=== PATIENT | female | born 1995 | race Caucasian/White ===

== ENCOUNTER 2018-07-07 16:34 | Inpatient (IN) | payer MEDICAID ==
[~2018-07-07] VITALS: Ht 157.5 cm; Wt 70.5 kg
[~2018-07-07 16:34] MED LIST: DOCU-131 PO; FERR324T8 PO; IBUP-1222 PO; prenatal vitamin PO
[2018-07-10] MEDS ORDERED: LIDOCAINE/PF 1.5%-EPI 1:200K, 30ML ONE (11:40)
[2018-07-11] MEDS ORDERED: OXYTOCIN 30U/ 0.9% NaCL 500ML 500 ML IV ONE (06:53)
[2018-07-11] MEDS ORDERED: OXYTOCIN 30U/ 0.9% NaCL 500ML 500 ML IV PRN ×2 (06:53→09:00)
[2018-07-11 06:56] VITALS: BP 101/60
[2018-07-11] MEDS ORDERED: ONDANSETRON 2MG/ML, 2ML IVPush PRN ×2 (07:00→11:30)
[2018-07-11] MEDS ORDERED: FENTANYL PF 100 MCG/2ML IV PRN (07:00)
[2018-07-11] MEDS ORDERED: FENTANYL PF 100 MCG/2ML IVPush PRN (07:00)
[2018-07-11] MEDS ORDERED: CALCIUM CARBONATE 500 MG TAB.CHEW PO PRN (07:00)
[2018-07-11] MEDS: LACTATED RINGERS 1,000 ML IV SCH ×5 (07:10→19:24)
[2018-07-11 07:30] LABS: BASOPHILS # (AUTO) 0.03 x10^3/uL (0-0.1); BASOPHILS % (AUTO) 1 % (0-1); EOSINOPHILS # (AUTO) 0.05 x10^3/uL (0-0.4); EOSINOPHILS % (AUTO) 1 % (1-7); LYMPHOCYTES # (AUTO) 2.04 x10^3/uL (1-3.4); LYMPHOCYTES % (AUTO) 31 % (22-44); MD NO; MEAN CORPUSCULAR HEMOGLOBIN 28.3 pg (27.0-34.8); MEAN CORPUSCULAR HGB CONC 33.3 g/dL (32.4-35.8); MEAN CORPUSCULAR VOLUME 85.2 fL (80-100); MEAN PLATELET VOLUME 6.1 fL (7.4-10.4); MONOCYTES # (AUTO) 0.43 x10^3/uL (0.2-0.8); MONOCYTES % (AUTO) 7 % (2-9); NEUTROPHILS # (AUTO) 4.02 x10^3/uL (1.8-6.8); NEUTROPHILS % (AUTO) 61 % (42-75); PLATELET COUNT 254 x10^3/uL (130-400); RED BLOOD COUNT 3.94 x10^6/uL (3.82-5.3); RED CELL DISTRIBUTION WIDTH 13.8 % (9.6-15.2)
[2018-07-11] MEDS ORDERED: OXYTOCIN 30U/ 0.9% NaCL 500ML 500 ML ONE ×2 (07:31→12:22)
[2018-07-11] MEDS ORDERED: NEWBORN KIT ONE (07:31)
[2018-07-11] MEDS: D5%-LACTATED RINGERS 1,000 ML IV SCH ×2 (09:00→17:00)
[2018-07-11] MEDS ORDERED: FENTANYL/BUPIV./NS/PF 250 ML EPIDCONT SCH (10:35)
[2018-07-11] MEDS ORDERED: FENTANYL PF 100 MCG/2ML ONE (11:24)
[2018-07-11] MEDS: FENTANYL/BUPIV./NS/PF 250 ML EPIDCONT SCH (11:24)
[2018-07-11] MEDS ORDERED: BUPIVACAINE 0.25% ONE (11:29)
[2018-07-11] MEDS ORDERED: LACTATED RINGERS 1,000 ML IVBOLUS PRN (11:30)
[2018-07-11] MEDS ORDERED: DIPHENHYDRAMINE 50 MG/ML, 1ML IVPush PRN (11:30)
[2018-07-11] MEDS ORDERED: NALOXONE 0.4 MG/ML, 1ML IVPush PRN (11:30)
[2018-07-11] MEDS ORDERED: EPHEDRINE 50 MG/ML, 1ML IVPush PRN (11:30)
[2018-07-11] MEDS ORDERED: IBUPROFEN 600 MG TABLET ONE (12:22)
[2018-07-11] MEDS: IBUPROFEN 600 MG TABLET PO PRN ×2 (12:24→21:10)
[2018-07-11] MEDS ORDERED: BISACODYL 10 MG SUPP PR ONE (12:30)
[2018-07-11] MEDS ORDERED: CARBOPROST TROMETHAMINE 250 MCG/ML, 1ML IM PRN (12:30)
[2018-07-11] MEDS ORDERED: ACETAMINOPHEN 325 MG TABLET PO PRN (12:30)
[2018-07-11] MEDS ORDERED: METOCLOPRAMIDE 5 MG/ML, 2ML IV PRN (12:30)
[2018-07-11] MEDS ORDERED: DOCUSATE 100 MG CAPSULE PO PRN (12:30)
[2018-07-11] MEDS ORDERED: ONDANSETRON 2MG/ML, 2ML IV PRN (12:30)
[2018-07-11] MEDS ORDERED: METHYLERGONOVINE 0.2 MG/ML IM PRN (12:30)
[2018-07-11] MEDS ORDERED: MISOPROSTOL 200 MCG TABLET PR PRN (12:30)
[2018-07-11] MEDS: OXYTOCIN 30U/ 0.9% NaCL 500ML 500 ML IV SCH ×2 (13:01→22:21)
[2018-07-11] MEDS ORDERED: HYDROcodone/APAP 5/325 TABLET ONE (14:43)
[2018-07-11] MEDS: OXYcodone/APAP 5/325MG TABLET PO PRN ×2 (14:47→21:06)
[2018-07-11 15:10] VITALS: BP 97/61
[2018-07-11 20:01] VITALS: BP 98/64
[2018-07-11 23:25] VITALS: BP 99/57
[2018-07-12 00:55] LABS: BASOPHILS # (AUTO) 0.02 x10^3/uL (0-0.1); BASOPHILS % (AUTO) 0 % (0-1); EOSINOPHILS # (AUTO) 0.03 x10^3/uL (0-0.4); EOSINOPHILS % (AUTO) 0 % (1-7); LYMPHOCYTES # (AUTO) 2.33 x10^3/uL (1-3.4); LYMPHOCYTES % (AUTO) 27 % (22-44); MD NO; MEAN CORPUSCULAR HEMOGLOBIN 28.9 pg (27.0-34.8); MEAN CORPUSCULAR HGB CONC 33.3 g/dL (32.4-35.8); MEAN CORPUSCULAR VOLUME 86.8 fL (80-100); MEAN PLATELET VOLUME 6.4 fL (7.4-10.4); MONOCYTES # (AUTO) 0.65 x10^3/uL (0.2-0.8); MONOCYTES % (AUTO) 7 % (2-9); NEUTROPHILS # (AUTO) 5.75 x10^3/uL (1.8-6.8); NEUTROPHILS % (AUTO) 66 % (42-75); PLATELET COUNT 215 x10^3/uL (130-400); RED BLOOD COUNT 2.86 x10^6/uL (3.82-5.3); RED CELL DISTRIBUTION WIDTH 13.6 % (9.6-15.2)
[2018-07-12] MEDS: D5%-LACTATED RINGERS 1,000 ML IV SCH ×2 (01:00→09:00)
[2018-07-12] MEDS: LACTATED RINGERS 1,000 ML IV SCH ×3 (03:24→11:24)
[2018-07-12 04:00] VITALS: BP 94/58
[2018-07-12] MEDS: IBUPROFEN 600 MG TABLET PO PRN ×2 (04:16→10:39)
[2018-07-12] MEDS: OXYcodone/APAP 5/325MG TABLET PO PRN ×2 (04:17→10:39)
[2018-07-12 07:15] VITALS: BP 93/56
[2018-07-12] MEDS: OXYTOCIN 30U/ 0.9% NaCL 500ML 500 ML IV SCH (08:21)
[2018-07-12] MEDS ORDERED: PRENATAL VIT/IRON/FA 1 EACH TABLET PO SCH (09:00)
[2018-07-12] MEDS: FENTANYL/BUPIV./NS/PF 250 ML EPIDCONT SCH (11:24)
[2018-07-12 11:50] VITALS: BP 97/58
== END 2018-07-12 14:46 | disposition home or self-care (01) | DRG 775 ==
LOC: LDIP 07-11 06:43 → 2NW 07-11 15:16
PROVIDERS: ADMIT Student in an Organized Health Care Education/Training Program; ATTEND Student in an Organized Health Care Education/Training Program
PROC: 10E0XZZ Delivery of Products of Conception, External Approach (ICD-10-PCS; principal; 2018-07-11)
PROC: 10907ZC Drainage of Amniotic Fluid, Therapeutic from Products of Conception, Via Natural or Artificial Opening (ICD-10-PCS; 2018-07-11)
PROC: 3E033VJ Introduction of Other Hormone into Peripheral Vein, Percutaneous Approach (ICD-10-PCS; 2018-07-11)
PROC: 0HQ9XZZ Repair Perineum Skin, External Approach (ICD-10-PCS; 2018-07-11)
PROC: 3E0R3BZ Introduction of Anesthetic Agent into Spinal Canal, Percutaneous Approach (ICD-10-PCS; 2018-07-11)
PROC: 00HU33Z Insertion of Infusion Device into Spinal Canal, Percutaneous Approach (ICD-10-PCS; 2018-07-11)
DX: O70.0 First degree perineal laceration during delivery (principal); Z37.0 Single live birth; Z3A.40 40 weeks gestation of pregnancy
CPT/HCPCS: 36415; 85025; 86850; 86900; J3010; J3490; C1765; J2590; J7120

== ENCOUNTER 2019-06-12 11:15 | Emergency (ER) | payer MEDICAID ==
[~2019-06-12] VITALS: Ht 157.5 cm; Wt 65.0 kg
[2019-06-12 11:20] VITALS: BP 124/80
--- NOTE | 2019-06-12 11:52 | NUR ---
Pt ambulatory to room. States that she has a small "ball or bump" on her vagina that hurts when she walks. Denies any sexual activity for the past month. Pt placed on pelvic bed. Denies any further needs or concerns at this time.
--- NOTE | 2019-06-12 12:02 | NUR ---
Pelvic cart at bedside.
[2019-06-12 12:46] LABS: CLUE CELLS PRESENT (NONE SEEN); WET PREP WBCS MODERATE (FEW)
== END 2019-06-12 14:01 | disposition home or self-care (01) ==
LOC: ED 13:16
DX: N76.4 Abscess of vulva (principal); N76.0 Acute vaginitis
CPT/HCPCS: 87210; 87491; 87591; 87808; 99283

== ENCOUNTER 2020-11-14 11:56 | Emergency (ER) | payer MEDICAID ==
[~2020-11-14] VITALS: Ht 157.5 cm; Wt 67.0 kg
[2020-11-14] MEDS ORDERED: METHOCARBAMOL 750 MG TABLET ONE (12:29)
[2020-11-14] MEDS ORDERED: METHOCARBAMOL 750 MG TABLET PO ONE (12:30)
[2020-11-14] MEDS ORDERED: NAPROXEN 500 MG TABLET PO ONE (12:30)
[2020-11-14] MEDS ORDERED: NAPROXEN 500 MG TABLET ONE (12:30)
--- NOTE | 2020-11-14 12:34 | NUR ---
BREAK RN: PATIENT MEDICATED PER [facility]. PATIENT TO IMAGING.
--- NOTE | 2020-11-14 12:53 | NUR ---
BREAK RN: PATIENT BACK FROM IMAGING, RESTING IN [employer] AT BEDSIDE, CALL LIGHT WITHIN REACH.
--- NOTE | 2020-11-14 13:15 | NUR ---
Patient/Caregiver given discharge instructions and they have confirmed that they understand the instructions. Patient ambulatory with steady gait.
[2020-11-14 14:49] VITALS: BP 102/57
== END 2020-11-14 14:52 | disposition home or self-care (01) ==
LOC: ED 12:44
DX: S39.012A Strain of muscle, fascia and tendon of lower back, initial encounter (principal); F17.210 Nicotine dependence, cigarettes, uncomplicated; X58.XXXA Exposure to other specified factors, initial encounter; Y93.89 Activity, other specified; Y92.89 Other specified places as the place of occurrence of the external cause; Y99.8 Other external cause status
CPT/HCPCS: 72110; 99283